=== PATIENT | male | born 1970 | race Two or more races ===

== ENCOUNTER 2017-05-05 17:15 | Emergency (ER) | payer OTHER ==
[~2017-05-05] VITALS: Ht 177.8 cm; Wt 83.5 kg
[~2017-05-05 17:15] MED LIST: BENA5TAB2 PO; BENZ56.73 TP; CYCL30DR OP; EYE15DRO OP; GLYB5TAB7 PO; LEVO25TA9 PO; METF500T4 PO; MINO50CA2 PO; VITA1CAP PO
[2017-05-05 17:26] VITALS: BP 146/80
--- NOTE | 2017-05-05 17:48 | NUR ---
XRAY AT BS
== END 2017-05-05 18:41 | disposition home or self-care (01) ==
LOC: ER 17:17
DX: M25.562 Pain in left knee (principal); E11.319 Type 2 diabetes mellitus with unspecified diabetic retinopathy without macular edema; E03.9 Hypothyroidism, unspecified; E11.40 Type 2 diabetes mellitus with diabetic neuropathy, unspecified; Z88.1 Allergy status to other antibiotic agents; Z79.84 Long term (current) use of oral hypoglycemic drugs
CPT/HCPCS: 73564; 99284; A4606; Z7610

== ENCOUNTER 2017-06-04 07:33 | Emergency (ER) | payer MEDICAID, OTHER ==
[~2017-06-04] VITALS: Ht 172.7 cm; Wt 83.5 kg
--- NOTE | 2017-06-04 07:35 | NUR ---
PT TO ED DT FOR FLU LIKE SYMPTOMS X 3 DAYS. PATIENT IS AFEBRILE. VSS.
--- NOTE | 2017-06-04 07:42 | NUR ---
RAY AT BEDSIDE
[2017-06-04] MEDS ORDERED: ONDANSETRON 4 MG TAB.RAPDIS ONE (07:53)
[2017-06-04] MEDS ORDERED: HYDROCODONE BIT/HOMATROPINE 5 ML UDC ONE ×2 (07:53→07:54)
[2017-06-04] MEDS ORDERED: ONDANSETRON 4 MG TAB.RAPDIS PO ONE (08:00)
[2017-06-04] MEDS ORDERED: IV NS 0.9% 1,000 ML BAG IV ONE (08:00)
[2017-06-04] MEDS ORDERED: BENZONATATE 100 MG CAPSULE PO PRN (08:00)
[2017-06-04] MEDS ORDERED: HYDROCODONE BIT/HOMATROPINE 5 ML UDC PO ONE (08:00)
[2017-06-04 08:26] LABS: BASOPHILS % (AUTO) 0.6 % (0.0-2.0); EOSINOPHILS # (AUTO) 0.2 /CMM (0.0-0.7); EOSINOPHILS % (AUTO) 3.7 % (0.0-6.0); HEMATOCRIT 38 % (39-51); HEMOGLOBIN 13.2 g/dL (13.5-17.5); LYMPHOCYTES # (AUTO) 0.9 /CMM (0.8-4.8); LYMPHOCYTES % (AUTO) 15.5 % (20.0-44.0); MEAN CORPUSCULAR HEMOGLOBIN 31 PG (26.0-33.0); MEAN CORPUSCULAR HGB CONC 35 g/dl (31.0-36.0); MEAN CORPUSCULAR VOLUME 88 fL (80-96); MONOCYTES # (AUTO) 0.6 /CMM (0.1-1.30); MONOCYTES % (AUTO) 9.8 % (2.0-12.0); NEUTROPHILS # (AUTO) 4.1 /CMM (1.8-8.9); NEUTROPHILS % (AUTO) 70.4 % (43.0-81.0); PLATELET COUNT (AUTO) 191 /CMM (150-450); RDW COEFFICIENT OF VARIATION 13.1 (11.5-15.0); RED BLOOD CELL COUNT(AUTO) 4.32 MIL/uL (4.5-6.0); WHITE BLOOD COUNT (AUTO) 5.9 K/uL (4.3-11.0)
[2017-06-04 08:35] LABS: CALCIUM, SERUM 9.2 mg/dL (8.5-10.1); CREATININE 0.9 mg/dL (0.6-1.3); POTASSIUM 4.3 mmol/L (3.5-5.1)
[2017-06-04 08:41] LABS: ALBUMIN 3.3 g/dL (3.4-5.0); BILIRUBIN,TOTAL 0.3 mg/dL (0.2-1.0); TOTAL PROTEIN, SERUM 6.9 g/dL (6.4-8.2)
--- NOTE | 2017-06-04 09:45 | NUR ---
Patient discharged to home in stable condition. Written and verbal after care instructions given. Patient verbalizes understanding of instruction.IV removed. Catheter intact and site benign. Pressure and 4x4 applied to site. No bleeding noted.
[2017-06-04 09:51] VITALS: BP 130/80
== END 2017-06-04 09:52 | disposition home or self-care (01) ==
LOC: ER 07:34
DX: J06.9 Acute upper respiratory infection, unspecified (principal); E11.40 Type 2 diabetes mellitus with diabetic neuropathy, unspecified; E11.319 Type 2 diabetes mellitus with unspecified diabetic retinopathy without macular edema; G62.9 Polyneuropathy, unspecified; E03.9 Hypothyroidism, unspecified; Z79.84 Long term (current) use of oral hypoglycemic drugs; Z88.1 Allergy status to other antibiotic agents
CPT/HCPCS: 36415; 71045; 80053; 85025; 87070; 87804 ×2; 87880; 96360; 99285; A4606; J7030; Q0162; Z7610; 86403-TC; 87400

== ENCOUNTER 2017-06-10 07:16 | Emergency (ER) | payer MEDICAID ==
[~2017-06-10] VITALS: Ht 177.8 cm; Wt 83.5 kg
[2017-06-10 07:22] VITALS: BP 129/77
[2017-06-10] MEDS ORDERED: IBUPROFEN 400 MG TABLET ONE (07:48)
[2017-06-10] MEDS ORDERED: IBUPROFEN 400 MG TABLET PO ONE (08:00)
== END 2017-06-10 07:51 | disposition home or self-care (01) ==
LOC: ER 07:22
DX: B34.9 Viral infection, unspecified (principal); R07.0 Pain in throat; E11.319 Type 2 diabetes mellitus with unspecified diabetic retinopathy without macular edema; E11.42 Type 2 diabetes mellitus with diabetic polyneuropathy; E03.9 Hypothyroidism, unspecified; G62.9 Polyneuropathy, unspecified; Z88.1 Allergy status to other antibiotic agents; Z79.84 Long term (current) use of oral hypoglycemic drugs
CPT/HCPCS: A4606; Z7610

== ENCOUNTER 2017-06-20 06:26 | Emergency (ER) | payer MEDICAID ==
[~2017-06-20] VITALS: Ht 180.3 cm; Wt 81.2 kg
--- NOTE | 2017-06-20 06:44 | NUR ---
PT AMBULATORY TO ER BED 3. PT BIB SELF FROM HOME C/O "FLU LIKE SYMPTOMS X 3 1/2 WEEKS". PT VSS/RESP EVEN UNLABORED/NAD NOTED/SKIN WARM AND DRY/DENIES N-V-D/AOX4. AWAITING MD WISE.
[2017-06-20] MEDS ORDERED: HYDROCODONE BIT/HOMATROPINE 5 ML UDC PO ONE (07:00)
[2017-06-20] MEDS ORDERED: BENZONATATE 100 MG CAPSULE PO PRN (07:00)
[2017-06-20] MEDS ORDERED: IV NS 0.9% 1,000 ML BAG IV ONE (07:00)
[2017-06-20] MEDS ORDERED: ONDANSETRON 4 MG TAB.RAPDIS SL ONE (07:00)
[2017-06-20] MEDS ORDERED: KETOROLAC TROMETHAMINE INJ 30 MG/ML VIAL IV ONE (07:00)
--- NOTE | 2017-06-20 07:08 | NUR ---
RAPID FLU SWAB DONE AND HANDED OVER TO THE LAB AT THE BEDSIDE.
--- NOTE | 2017-06-20 07:10 | NUR ---
18G IV TO R AC X 1 ATTEMPT USING ASEPTIC TECH, BLOOD HANDED OVER TO LAB AT THE BEDSIDE. IV FLUSHES EASILY WITH NS, NO S/S INFILTRATION.
--- NOTE | 2017-06-20 07:15 | NUR ---
XRAY AT THE BEDSIDE.
[2017-06-20] MEDS ORDERED: ONDANSETRON 4 MG TAB.RAPDIS ONE (07:22)
[2017-06-20] MEDS ORDERED: KETOROLAC TROMETHAMINE INJ 30 MG/ML VIAL ONE (07:22)
[2017-06-20] MEDS ORDERED: HYDROCODONE BIT/HOMATROPINE 5 ML UDC ONE (07:22)
[2017-06-20 07:24] LABS: BASOPHILS % (AUTO) 0.3 % (0.0-2.0); EOSINOPHILS # (AUTO) 0.1 /CMM (0.0-0.7); EOSINOPHILS % (AUTO) 1.3 % (0.0-6.0); HEMATOCRIT 37 % (39-51); HEMOGLOBIN 12.8 g/dL (13.5-17.5); LYMPHOCYTES # (AUTO) 0.7 /CMM (0.8-4.8); LYMPHOCYTES % (AUTO) 9.9 % (20.0-44.0); MEAN CORPUSCULAR HEMOGLOBIN 31 PG (26.0-33.0); MEAN CORPUSCULAR HGB CONC 35 g/dl (31.0-36.0); MEAN CORPUSCULAR VOLUME 87 fL (80-96); MONOCYTES # (AUTO) 0.7 /CMM (0.1-1.30); MONOCYTES % (AUTO) 10.2 % (2.0-12.0); NEUTROPHILS # (AUTO) 5.7 /CMM (1.8-8.9); NEUTROPHILS % (AUTO) 78.3 % (43.0-81.0); PLATELET COUNT (AUTO) 224 /CMM (150-450); RDW COEFFICIENT OF VARIATION 13.2 (11.5-15.0); RED BLOOD CELL COUNT(AUTO) 4.21 MIL/uL (4.5-6.0); WHITE BLOOD COUNT (AUTO) 7.3 K/uL (4.3-11.0)
--- NOTE | 2017-06-20 07:29 | NUR ---
MEDICATED PER MD ORDERS. ENDORSED TO CORAL BERKOWITZ FOR LUCIUS.
[2017-06-20 07:33] LABS: CALCIUM, SERUM 8.6 mg/dL (8.5-10.1); POTASSIUM 4.5 mmol/L (3.5-5.1)
[2017-06-20 07:38] LABS: BILIRUBIN,DIRECT 0.1 mg/dL (0.0-0.2); BILIRUBIN,TOTAL 0.4 mg/dL (0.2-1.0); TOTAL PROTEIN, SERUM 6.8 g/dL (6.4-8.2)
[2017-06-20] MEDS ORDERED: INSULIN REGULAR, HUMAN 100 UNIT/ML 10 ML VIAL SQ ONE (08:00)
[2017-06-20] MEDS ORDERED: INSULIN REGULAR, HUMAN 100 UNIT/ML 10 ML VIAL ONE (08:08)
[2017-06-20 08:29] VITALS: BP 129/79
== END 2017-06-20 08:36 | disposition home or self-care (01) ==
LOC: ER 06:28
DX: B34.9 Viral infection, unspecified (principal); E11.40 Type 2 diabetes mellitus with diabetic neuropathy, unspecified; E11.319 Type 2 diabetes mellitus with unspecified diabetic retinopathy without macular edema; E03.9 Hypothyroidism, unspecified; Z88.1 Allergy status to other antibiotic agents; Z79.84 Long term (current) use of oral hypoglycemic drugs
CPT/HCPCS: 36415; 71045; 80048; 80076; 85025; 87804; 93005; 96361; 96374; 99285; A4606; J1815; J1885; J7030; Q0162; Z7610; 87400

== ENCOUNTER 2018-02-04 21:49 | Emergency (ER) | payer MEDICAID ==
[~2018-02-04] VITALS: Ht 177.8 cm; Wt 81.2 kg
[~2018-02-04 21:49] MED LIST changes: -BENA5TAB2 PO; +BENA5TAB5 PO; +METF-440 PO; -METF500T4 PO; -MINO50CA2 PO; +MINO50CA6 PO
[2018-02-04 21:51] VITALS: BP 114/80
[2018-02-04] MEDS ORDERED: TDAP [DIPH/PERTUSSIS/TET] 0.5 ML VIAL IM ONE ×2 (22:28→22:30)
== END 2018-02-04 22:35 | disposition home or self-care (01) ==
LOC: ER 21:52
DX: S81.812A Laceration without foreign body, left lower leg, initial encounter (principal); E11.319 Type 2 diabetes mellitus with unspecified diabetic retinopathy without macular edema; E11.42 Type 2 diabetes mellitus with diabetic polyneuropathy; E03.9 Hypothyroidism, unspecified; Z88.1 Allergy status to other antibiotic agents; W54.0XXA Bitten by dog, initial encounter; Y93.89 Activity, other specified; Y92.89 Other specified places as the place of occurrence of the external cause; Y99.8 Other external cause status
CPT/HCPCS: 90471; 90715; 99283; A6402; Z7610

== ENCOUNTER 2018-04-15 13:40 | Emergency (ER) | payer MEDICAID ==
[~2018-04-15] VITALS: Ht 177.8 cm; Wt 83.0 kg
[2018-04-15 13:40] VITALS: BP 135/99
[2018-04-15] MEDS ORDERED: HYDROCODONE/APAP 10/325MG 1 EA TABLET ONE (14:27)
[2018-04-15] MEDS ORDERED: HYDROCODONE/APAP 10/325MG 1 EA TABLET PO ONE (14:30)
== END 2018-04-15 16:05 | disposition home or self-care (01) ==
LOC: ER 13:44
DX: M54.42 Lumbago with sciatica, left side (principal); E11.319 Type 2 diabetes mellitus with unspecified diabetic retinopathy without macular edema; E11.42 Type 2 diabetes mellitus with diabetic polyneuropathy; G89.29 Other chronic pain; M25.562 Pain in left knee; M25.552 Pain in left hip; E03.9 Hypothyroidism, unspecified; Z88.1 Allergy status to other antibiotic agents
CPT/HCPCS: 72110; 73503; 99283; A4606; Z7610; 73502

== ENCOUNTER 2018-11-13 21:32 | Emergency (ER) | payer MEDICAID ==
[~2018-11-13] VITALS: Ht 177.8 cm; Wt 78.5 kg
--- NOTE | 2018-11-13 22:20 | NUR ---
PT BIBSELF C/O OF R GROIN PAIN. PT IN STABLE CONDITION, NO ACUTE DISTRESS NOTES. RESPIRATIONS EVEN AND UNLABORDED. SKIN WARM AND INTACT.
--- NOTE | 2018-11-13 22:40 | NUR ---
ORDERED CT OF PELVIS W OUT CONTRAST
--- NOTE | 2018-11-13 23:02 | NUR ---
PT RETURNED FROM CT
--- NOTE | 2018-11-14 01:16 | NUR ---
Patient discharged to home in stable condition. Written and verbal after care instructions given. Patient verbalizes understanding of instruction.Pt ambulatory with a steady gait
[2018-11-14 01:17] VITALS: BP 127/79
== END 2018-11-14 01:18 | disposition home or self-care (01) ==
LOC: ER 21:32
DX: K40.90 Unilateral inguinal hernia, without obstruction or gangrene, not specified as recurrent (principal); E11.42 Type 2 diabetes mellitus with diabetic polyneuropathy; E11.319 Type 2 diabetes mellitus with unspecified diabetic retinopathy without macular edema; Z98.890 Other specified postprocedural states; Z88.1 Allergy status to other antibiotic agents; Z79.84 Long term (current) use of oral hypoglycemic drugs; Z79.899 Other long term (current) drug therapy
CPT/HCPCS: 72192-TC

== ENCOUNTER 2019-05-13 18:18 | Emergency (ER) | payer MEDICAID ==
[~2019-05-13] VITALS: Ht 177.8 cm; Wt 78.0 kg
[2019-05-13 18:28] VITALS: BP 110/74
--- NOTE | 2019-05-13 19:05 | NUR ---
CALLED RT FOR BREATHING TX.
[2019-05-13] MEDS ORDERED: ALBUTEROL FS 2.5 MG/3 ML VIAL.NEB ONE (19:10)
[2019-05-13] MEDS ORDERED: IPRATROPIUM NEB FS 0.5 MG/2.5 ML AMPUL.NEB ONE (19:10)
[2019-05-13] MEDS ORDERED: ALBUTEROL FS 2.5 MG/3 ML VIAL.NEB NEB ONE (19:30)
[2019-05-13] MEDS ORDERED: IPRATROPIUM NEB FS 0.5 MG/2.5 ML AMPUL.NEB NEB ONE (19:30)
== END 2019-05-13 21:43 | disposition home or self-care (01) ==
LOC: ER 18:21
DX: J40 Bronchitis, not specified as acute or chronic (principal); E11.42 Type 2 diabetes mellitus with diabetic polyneuropathy; E11.319 Type 2 diabetes mellitus with unspecified diabetic retinopathy without macular edema; E03.9 Hypothyroidism, unspecified; Z98.890 Other specified postprocedural states; Z88.1 Allergy status to other antibiotic agents; Z79.899 Other long term (current) drug therapy; Z79.84 Long term (current) use of oral hypoglycemic drugs
CPT/HCPCS: 71045-TC

== ENCOUNTER 2020-03-27 11:52 | Emergency (ER) | payer MEDICAID ==
[~2020-03-27] VITALS: Ht 177.8 cm; Wt 81.2 kg
--- NOTE | 2020-03-27 12:05 | NUR ---
PT came to ER with c/o abdominal pain for 5 days. n/v. no diarrhea. no fever. no abdominal distention. awaiting for MD michael
[2020-03-27] MEDS ORDERED: KETOROLAC TROMETHAMINE INJ 30 MG/ML VIAL IV ONE (12:30)
[2020-03-27] MEDS ORDERED: PANTOPRAZOLE 40 MG VIAL IV ONE (12:30)
[2020-03-27] MEDS ORDERED: IV NS 0.9% 1,000 ML BAG IV ONE (12:30)
--- NOTE | 2020-03-27 12:40 | NUR ---
pt unable to collect urine at this time. MD aware and agreed
[2020-03-27] MEDS ORDERED: PANTOPRAZOLE 40 MG VIAL ONE (12:42)
[2020-03-27] MEDS ORDERED: KETOROLAC TROMETHAMINE 15 MG/ML VIAL ONE (12:42)
[2020-03-27 13:00] LABS: BASOPHILS # (AUTO) 0.1 /CMM (0.0-0.2); BASOPHILS % (AUTO) 1.4 % (0.0-2.0); EOSINOPHILS % (AUTO) 3.7 % (0.0-6.0); HEMATOCRIT 46 % (39-51); HEMOGLOBIN 15.8 g/dL (13.5-17.5); LYMPHOCYTES # (AUTO) 1.1 /CMM (0.8-4.8); LYMPHOCYTES % (AUTO) 21.7 % (20.0-44.0); MEAN CORPUSCULAR HGB CONC 34 g/dl (31.0-36.0); MEAN CORPUSCULAR VOLUME 88 fL (80-96); MONOCYTES # (AUTO) 0.5 /CMM (0.1-1.30); NEUTROPHILS # (AUTO) 3.3 /CMM (1.8-8.9); NEUTROPHILS % (AUTO) 63.2 % (43.0-81.0); PLATELET COUNT (AUTO) 221 /CMM (150-450); RED BLOOD CELL COUNT(AUTO) 5.29 MIL/uL (4.5-6.0); WHITE BLOOD COUNT (AUTO) 5.2 K/uL (4.3-11.0)
[2020-03-27 13:05] LABS: CALCIUM, SERUM 9.1 mg/dL (8.5-10.1); POTASSIUM 4.1 mmol/L (3.5-5.1)
[2020-03-27 13:10] LABS: ALBUMIN 3.7 g/dL (3.4-5.0); BILIRUBIN,DIRECT 0.1 mg/dL (0.0-0.2); BILIRUBIN,TOTAL 0.4 mg/dL (0.2-1.0); TOTAL PROTEIN, SERUM 6.9 g/dL (6.4-8.2)
[2020-03-27 13:54] VITALS: BP 118/70
== END 2020-03-27 13:54 | disposition home or self-care (01) ==
LOC: ER 12:04
DX: K59.00 Constipation, unspecified (principal); E11.65 Type 2 diabetes mellitus with hyperglycemia; K21.9 Gastro-esophageal reflux disease without esophagitis; E03.9 Hypothyroidism, unspecified; Z98.890 Other specified postprocedural states; Z88.1 Allergy status to other antibiotic agents; Z79.84 Long term (current) use of oral hypoglycemic drugs; Z79.899 Other long term (current) drug therapy
CPT/HCPCS: 71045; 74176; 80048; 80076; 83690; 85025; 96361; 96374; 96375; 99285; C9113; J1885; J7030

== ENCOUNTER 2021-09-25 08:48 | Inpatient (IN) | payer MEDICAID ==
[~2021-09-25] VITALS: Ht 177.8 cm; Wt 83.0 kg
--- NOTE | 2021-09-25 09:00 | NUR ---
AT BED SIDE
--- NOTE | 2021-09-25 09:00 | NUR ---
BIBS c/o acid reflux x 6 days. AMBULATORY, AAOX4. PLACED ON BED
--- NOTE | 2021-09-25 09:20 | NUR ---
BLOOD DRAWN AND SENT TO LAB
[2021-09-25] MEDS ORDERED: LIDOCAINE VISCOUS 2% UD 15 ML UDC MM ONE (09:30)
[2021-09-25] MEDS ORDERED: MAG HYDROX/AL HYDROX/SIMETH 30 ML UDC PO ONE (09:30)
[2021-09-25] MEDS ORDERED: ONDANSETRON HCL/PF 4 MG/2 ML VIAL IVP ONE (09:30)
[2021-09-25] MEDS ORDERED: FAMOTIDINE/PF INJ 20 MG/2 ML VIAL IV ONE ×2 (09:30→09:36)
[2021-09-25] MEDS ORDERED: IV NS 0.9% 1,000 ML BAG IV ONE (09:30)
[2021-09-25] MEDS ORDERED: MAG HYDROX/AL HYDROX/SIMETH 30 ML UDC ONE (09:34)
[2021-09-25] MEDS ORDERED: LIDOCAINE VISCOUS 2% UD 15 ML UDC ONE (09:35)
[2021-09-25] MEDS ORDERED: ONDANSETRON HCL/PF 4 MG/2 ML VIAL ONE (09:35)
[2021-09-25 09:40] LABS: BASOPHILS % (AUTO) 0.6 % (0.0-2.0); EOSINOPHILS % (AUTO) 1.5 % (0.0-6.0); HEMATOCRIT 46 % (39-51); HEMOGLOBIN 15.4 g/dL (13.5-17.5); LYMPHOCYTES % (AUTO) 15.4 % (20.0-44.0); MEAN CORPUSCULAR HGB CONC 33 g/dl (31.0-36.0); MEAN CORPUSCULAR VOLUME 88 fL (80-96); MONOCYTES # (AUTO) 0.5 K/uL (0.1-1.30); MONOCYTES % (AUTO) 7.3 % (2.0-12.0); NEUTROPHILS # (AUTO) 5.1 K/uL (1.8-8.9); NEUTROPHILS % (AUTO) 75.2 % (43.0-81.0); PLATELET COUNT (AUTO) 245 K/uL (150-450); RED BLOOD CELL COUNT(AUTO) 5.28 MIL/uL (4.5-6.0); WHITE BLOOD COUNT (AUTO) 6.7 K/uL (4.3-11.0)
[2021-09-25 09:49] LABS: CALCIUM, SERUM 9.1 mg/dL (8.5-10.1); CARBON DIOXIDE 24 mmol/L (21-32); CHLORIDE 97 mmol/L (98-107); CREATININE 1.2 mg/dL (0.6-1.3); GLUCOSE 341 mg/dL (74-106); POTASSIUM 4.8 mmol/L (3.5-5.1); SODIUM SERUM 133 mmol/L (136-145); UREA NITROGEN, BLOOD 23 mg/dL (7-18)
[2021-09-25] MEDS ORDERED: DILTIAZEM HCL 25 MG IV ONE (09:52)
[2021-09-25 09:56] LABS: ALANINE AMINOTRANSFERASE 29 U/L (12-78); ALBUMIN 3.4 g/dL (3.4-5.0); ALKALINE PHOSPHATASE 81 U/L (46-116); ASPARTATE AMINOTRANSFERASE 14 U/L (15-37); BILIRUBIN,DIRECT 0.1 mg/dL (0.0-0.2); BILIRUBIN,TOTAL 0.5 mg/dL (0.2-1.0); LIPASE 187 U/L (73-393); TOTAL PROTEIN, SERUM 6.6 g/dL (6.4-8.2)
[2021-09-25] MEDS ORDERED: DILTIAZEM HCL 25 MG IV IV ONE ×2 (10:00→10:30)
[2021-09-25] MEDS ORDERED: FOLI0.4T6 PO (10:30)
[2021-09-25] MEDS ORDERED: PREG-58 PO (10:30)
[2021-09-25] MEDS ORDERED: ROSU20TA32 PO (10:30)
[2021-09-25] MEDS ORDERED: EMPA25TA PO (10:30)
[2021-09-25] MEDS ORDERED: OMEP40CA21 PO (10:30)
[2021-09-25] MEDS ORDERED: LINA5TAB PO (10:30)
[2021-09-25] MEDS ORDERED: BUSP15TA3 PO (10:30)
--- NOTE | 2021-09-25 10:50 | NUR ---
DR. NARANJO SPEAKING WITH DR. MCCOY.
[2021-09-25] MEDS ORDERED: INSULIN REGULAR, HUMAN 100 UNIT/ML 10 ML VIAL ONE (10:54)
[2021-09-25] MEDS ORDERED: DILTIAZEM HCL CD 120 MG PO ONE (11:00)
[2021-09-25] MEDS ORDERED: INSULIN REGULAR, HUMAN 100 UNIT/ML 10 ML VIAL SQ ONE (11:00)
[2021-09-25] MEDS ORDERED: DILTIAZEM HCL CD 120 MG ONE ×2 (11:04→13:28)
--- NOTE | 2021-09-25 11:14 | NUR ---
[facility] [phone] [facility] GIVEN
[2021-09-25] MEDS ORDERED: METOPROLOL TARTRATE 50 MG TABLET ONE (11:56)
[2021-09-25] MEDS: METOPROLOL TARTRATE 25 MG TABLET PO SCH ×2 (11:59→16:12)
[2021-09-25] MEDS ORDERED: DEXTROSE 50%-WATER 50 ML DISP.SYRIN IV PRN (12:00)
[2021-09-25] MEDS ORDERED: *INSULIN REGULAR(HUMULIN R)HUM 100 UNIT/ML VIAL SQ PRN (12:00)
[2021-09-25] MEDS: BLOOD SUGAR DIAGNOSTIC 1 EACH STRIP VI SCH ×3 (12:00→22:19)
[2021-09-25] MEDS ORDERED: ACETAMINOPHEN ES 500 MG TABLET PO PRN (12:00)
[2021-09-25] MEDS ORDERED: DIGOXIN INJ 0.5 MG/2 ML AMPUL ONE (13:27)
[2021-09-25] MEDS ORDERED: DIGOXIN INJ 0.5 MG/2 ML AMPUL IV ONE (13:30)
[2021-09-25] MEDS: DILTIAZEM HCL CD 120 MG PO SCH (13:33)
--- NOTE | 2021-09-25 13:33 | NUR ---
CARDIXEM 120 MG GIVEN, PER DR NARANJO ADMINISTER CARDIZEM 120 MG NOW.
--- NOTE | 2021-09-25 14:15 | NUR ---
Patient will go to Tele [phone]
--- NOTE | 2021-09-25 14:38 | NUR ---
Report given to CORAL Huff to Tele [phone] for LUCIUS.
[2021-09-25 15:15] VITALS: BP 120/80
--- NOTE | 2021-09-25 15:15 | NUR ---
DELIVERY MERCHANDISERFORM PRESSER NOTE RECEIVED PT FROM ER, ENDORSED BY CORAL DURAN. PATIENT IS AWAKE, A/OX4, ABLE TO COMMUNICATE EFFECTIVELY AND TO MAKE HIS NEEDS KNOWN. HE DENIES ANY PAIN AT THIS TIME. NO S/S OF SOB AND RESPIRATIONS EVEN/UNLABORED. IV SITE: L AC #20G SL: INTACT/PATENT/FLUSHES WELL. PATIENT'S INITIAL HR DURING ADMISSION WAS 140. HR READING WAS REPORTED TO DR. NARANJO, AND HE PRESCRIBED 50 MG METOPROLOL. B/P MEDS WAS ADMINISTERED AND HR WENT DOWN TO 103 AFTER 30 MINS. WILL CONT TO MONITOR FOR LUCIUS.
[2021-09-25] MEDS ORDERED: METOPROLOL TARTRATE 50 MG TABLET PO SCH (16:00)
[2021-09-25] MEDS: METFORMIN 500 MG TABLET PO SCH (16:12)
[2021-09-25] MEDS: PANTOPRAZOLE 40 MG TABLET.DR PO SCH (16:12)
[2021-09-25] MEDS: APIXABAN 5 MG TABLET PO SCH (16:13)
[2021-09-25 16:34] VITALS: BP 109/65
[2021-09-25] MEDS: glyBURIDE 5 MG TABLET PO SCH (17:00)
[2021-09-25] MEDS: INSULIN REGULAR, HUMAN 100 UNIT/ML 3 ML VIAL SQ PRN (18:18)
--- NOTE | 2021-09-25 18:54 | NUR ---
MS RN CLOSING NOTES PT AWAKE IN BED, A/OX4, ABLE TO MAKE NEEDS KNOWN. RESPIRATIONS EVEN/UNLABORED. PT IN NO ACUTE DISTRESS AND PAIN AT THIS TIME. IV SITE: LEFT AC 22G INTACT/PATENT/FLUSHES WELL. F/C INTACT, DRAINING WELL. PATIENT WAS ABLE TO WALK AND STABLE. SAFETY MEASURES IN PLACE. WILL ENDORSE TO ONCOMING SHIFT FOR LUCIUS.
--- NOTE | 2021-09-25 19:25 | NUR ---
RN NOTE NO AVAILABLE GLYBURIDE. THUS, IT WAS NOT GIVEN AND PHARMACY IS AWARE.
--- NOTE | 2021-09-25 19:50 | NUR ---
OFFAL BALER OPENING NOTE PATIENT RESTING IN BED, ALERT/ORIENTED X 4, PT ABLE TO MAKE NEEDS KNOWN. PATIENT DENIES CHEST PAIN AT THIS TIME, STATES HE'S FEELING BETTER. 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 LEFT AC #20G IV ACCESS INTACT AND SALINE LOCKED. PER REPORT PATIENT IS AMBULATORY AND STEADY WITH BRP. SAFETY MEASURES IN PLACE: CALL LIGHT WITHIN REACH, SIDE RAILS UP X 2, BED LOCKED IN LOWEST POSITION. WILL CONTINUE TO MONITOR PATIENT
[2021-09-25 20:00] VITALS: BP 105/62
[2021-09-25] MEDS ORDERED: ATORVASTATIN 40 MG TABLET PO SCH (22:00)
[2021-09-25] MEDS ORDERED: ZOLPIDEM TARTRATE 5 MG TABLET PO PRN (22:00)
--- NOTE | 2021-09-25 22:10 | NUR ---
AUDITOR NOTE PATIENT ON TELE MONITORING, NOTED WITH HR BOUNCING BETWEEN 115-140 BPM, BP 105/62. NOTIFIED DR. NARANJO WITH ORDER FOR ONE TIME ORDER FOR METOPROLOL 50 MG NOW. ALSO STATED TO CHANGED SCHEDULED METOPROLOL 50 MG BID TO METOPROLOL 100 MG BID. ORDERS CARRIED OUT Addendum: 09/25/21 at 2351 by LISA LAM RN WITH ONE TIME ORDER FOR METOPROLOL 50 MG PO NOW
[2021-09-25] MEDS ORDERED: METOPROLOL TARTRATE 50 MG TABLET PO ONE (22:30)
[2021-09-26] VITALS: BP 116/72
[2021-09-26 06:16] LABS: CALCIUM, SERUM 8.4 mg/dL (8.5-10.1); POTASSIUM 4.2 mmol/L (3.5-5.1)
[2021-09-26 06:18] LABS: BASOPHILS % (AUTO) 0.8 % (0.0-2.0); EOSINOPHILS % (AUTO) 4.1 % (0.0-6.0); HEMATOCRIT 45 % (39-51); HEMOGLOBIN 15.1 g/dL (13.5-17.5); LYMPHOCYTES % (AUTO) 22.7 % (20.0-44.0); MEAN CORPUSCULAR HGB CONC 34 g/dl (31.0-36.0); MEAN CORPUSCULAR VOLUME 87 fL (80-96); MONOCYTES # (AUTO) 0.4 K/uL (0.1-1.30); MONOCYTES % (AUTO) 9.3 % (2.0-12.0); NEUTROPHILS # (AUTO) 2.8 K/uL (1.8-8.9); NEUTROPHILS % (AUTO) 63.1 % (43.0-81.0); PLATELET COUNT (AUTO) 224 K/uL (150-450); RED BLOOD CELL COUNT(AUTO) 5.16 MIL/uL (4.5-6.0); WHITE BLOOD COUNT (AUTO) 4.5 K/uL (4.3-11.0)
--- NOTE | 2021-09-26 06:37 | NUR ---
CERAMIC PAINTER CLOSING NOTES PATIENT AWAKE IN BED, ALERT/ORIENTED X 4, PT ABLE TO MAKE NEEDS KNOWN. PT STABLE ON RA, NO S/S OF DISTRESS OR SOB NOTED, BREATHING EVEN AND UNLABORED. 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 AFTER METOPROLOL 50 MG PO WAS GIVEN LAST NIGHT @ 2218, HR WAS IN THE 80'S TO LOW 100'S. LEFT AC #20G IV ACCESS INTACT AND SALINE LOCKED. MEDICATIONS GIVEN ORDERED, PT NEEDS MET THROUGHOUT SHIFT. SAFETY MEASURES IN PLACE: CALL LIGHT WITHIN REACH, SIDE RAILS UP X 2, BED LOCKED IN LOWEST POSITION. WILL ENDORSE TO DAY SHIFT NURSE FOR CONTINUITY OF CARE
[2021-09-26] MEDS: INSULIN REGULAR, HUMAN 100 UNIT/ML 3 ML VIAL SQ PRN (06:48)
[2021-09-26] MEDS: BLOOD SUGAR DIAGNOSTIC 1 EACH STRIP VI SCH (06:48)
--- NOTE | 2021-09-26 08:03 | NUR ---
RN OPENING NOTE PATIENT RECEIVED IN BED, AO X 4. ABLE TO RESPONDS ALL STIMULI. IN NO ACUTE DISTRESS NOTED. RESPIRATORY EVEN AND UNLABORED ON ROOM AIR. SKIN IS WARM TO TOUCH, KEEP CLEAN/DRY. KEPT ELEVATED HOB FOR ENSURE AIRWAY AND ASPIRATION PRECAUTION, ALSO LOWEST POSITION OF THE BED, S/R UP X 3, BED ALARM IS ON AT ALL THE TIMES. ALL SAFETY PRECAUTION APPLIED. CALL LIGHT WITHIN REACH, WILL CONTINUE TO MONITOR.
[2021-09-26] MEDS: METFORMIN 500 MG TABLET PO SCH (08:38)
[2021-09-26 08:39] VITALS: BP 141/73
[2021-09-26] MEDS: DILTIAZEM HCL CD 120 MG PO SCH (08:39)
[2021-09-26] MEDS: APIXABAN 5 MG TABLET PO SCH (08:42)
[2021-09-26] MEDS: PANTOPRAZOLE 40 MG TABLET.DR PO SCH (08:52)
[2021-09-26] MEDS ORDERED: DILTIAZEM HCL CD 120 MG PO SCH (09:00)
[2021-09-26] MEDS ORDERED: FOLIC ACID 1 MG TABLET PO SCH (09:00)
[2021-09-26] MEDS ORDERED: LINAGLIPTIN 5 MG TABLET PO SCH (09:00)
[2021-09-26] MEDS ORDERED: METOPROLOL TARTRATE 25 MG TABLET PO SCH (09:00)
[2021-09-26] MEDS ORDERED: EMPAGLIFLOZIN 25 MG TABLET PO SCH (09:00)
[2021-09-26] MEDS ORDERED: busPIRone 5 MG TABLET PO SCH (09:00)
[2021-09-26] MEDS ORDERED: LEVOTHYROXINE SODIUM 112 MCG TABLET PO SCH (09:00)
[2021-09-26] MEDS: glyBURIDE 5 MG TABLET PO SCH (09:52)
[2021-09-26] MEDS ORDERED: DILTIAZEM HCL CD 240 MG PO SCH (11:00)
[2021-09-26] MEDS ORDERED: DIGOXIN 0.125 MG TABLET PO SCH (13:00)
--- NOTE | 2021-09-26 13:30 | NUR ---
: PATIENT STATED "I HAVE AN APPOINTMENT WITH CARDIOLOGY TOMORROW!" AND PATIENT SIGNED AMA THEN LEFT FACILITY. PATIENT UNDERSTANDING ABOUT THE RISKS AND CONSEQUENCES INVOLVED IN LEAVING THE HOSPITAL AT THIS TIME. INFORMED MD REGARDING ABOVE. REMOVED IV AND HOME WORKER BEFORE PATIENT LEAVE. INCIDENT REPORT IS DONE.
[2021-09-27] MEDS ORDERED: LEVOTHYROXINE SODIUM 100 MCG TABLET PO SCH (07:30)
== END 2021-09-26 13:15 | disposition left against medical advice (07) | DRG 201 ==
LOC: ER 08:56 → TRANSITION 13:11 → TELE 14:42
PROVIDERS: ADMIT Internal Medicine; ATTEND Internal Medicine
DX: I48.92 Unspecified atrial flutter (principal); E11.319 Type 2 diabetes mellitus with unspecified diabetic retinopathy without macular edema; E11.42 Type 2 diabetes mellitus with diabetic polyneuropathy; E03.9 Hypothyroidism, unspecified; I10 Essential (primary) hypertension; I48.91 Unspecified atrial fibrillation; Z20.822 Contact with and (suspected) exposure to COVID-19; K21.9 Gastro-esophageal reflux disease without esophagitis; Z79.84 Long term (current) use of oral hypoglycemic drugs; Z79.890 Hormone replacement therapy; Z82.49 Family history of ischemic heart disease and other diseases of the circulatory system; Z83.3 Family history of diabetes mellitus; Z79.899 Other long term (current) drug therapy; Z98.890 Other specified postprocedural states
CPT/HCPCS: 36415; 71045-TC; 80048-TC; 80076-TC; 82962-TC; 83690-TC; 83880; 84439-TC; 84443-TC; 84484-TC; 85025-TC; 87081-TC; 93307-TC; C9803; G0378; G0480; J1160; J1815; J2405; J3490